=== PATIENT | female | born 1955 | race Caucasian/White ===

== ENCOUNTER 2016-10-12 11:49 | Observation (INO) | payer BC ==
[~2016-10-12] VITALS: Ht 160 cm; Wt 70.8 kg
[~2016-10-12 11:49] MED LIST: ASPIRIN81 MG PO; AVELOX400 MG OR; BAYER ASPIRIN E81 MG PO; BAYER LOW81 MG PO; BUPROPION HCL300 MG PO; CARAFATE1 GM PO; CHERATUSSIN OR; FLEXERIL OR; FLEXERIL10 MG PO; LEXAPRO10 MG PO; LEXAPRO20 MG PO; MEDDOSEPAK OR; NORCO1 TA1 PO; OMEPRAZOLE20 MG PO; PERCOCET 5/321 COMBO PO; PLAVIX75 MG OR; PREMARIN0.625 MG OR; PREVPAC PO; PROTONIX40 MG PO; TRAMADOL HCL50 MG PO; TRICOR145 MG OR; WELLBUTRIN150 MG PO; XANAX0.25 MG PO; ZOCOR20 M1 PO; ZOCOR20 MG PO
[2016-10-12 12:18] LABS: HEMATOCRIT 37.3 % (37.0-47.0); HEMOGLOBIN 12.9 g/dl (12.0-16.0); IMMATURE GRANULOCYTES 0.3 % (0.0-1.0); MEAN CELL VOLUME 88.4 fL CALC (80.0-100.0); MEAN CORPUSCULAR HGB 30.6 pG CALC (26.0-32.0); MEAN CORPUSCULAR HGB CONC 34.6 g/L CALC (32.0-36.0); NEUT# 6.9 thou/uL (2.00-7.15); RED BLOOD COUNT 4.22 mill/uL (4.20-5.60); RED CELL DISTRI WIDTH 12.3 % (11.5-15.5)
[2016-10-12 12:19] LABS: ALBUMIN 4.3 g/dL (3.2-5.0); ALKALINE PHOSPHATASE 107 u/l (38-126); ANION GAP 16 (6-22 (CALC)); BILIRUBIN, TOTAL 0.6 mg/dL (0.0-1.4); BUN 13 mg/dL (8-23); BUN/CREATININE RATIO 10 (12-20 (CALC)); CALCIUM 9.3 mg/dL (8.4-10.2); CARBON DIOXIDE 25 mmol/l (22-30); CHLORIDE 105 mmol/l (95-108); CREATININE 1.4 mg/dL (0.5-1.0); GFR 38 ML/MIN (>=60 (CALC)); GFR FOR AFR.AMER. 46 ML/MIN (>=60 (CALC)); GLUCOSE 107 mg/dL (82-115); POTASSIUM 4.5 mmol/l (3.5-5.1); SGOT/AST 32 u/l (9-36); SGPT/ALT 33 u/l (11-66); SODIUM 141 mmol/l (137-146); TOTAL PROTEIN 7.8 g/dL (6.3-8.2)
[2016-10-12 12:30] LABS: MYOGLOBIN 62 ng/mL (0 - 62)
[2016-10-12 14:15] VITALS: BP 129/75
[2016-10-12 18:52] VITALS: BP 125/75
[2016-10-13 00:32] VITALS: BP 106/66
[2016-10-13 05:14] VITALS: BP 98/61
[2016-10-13 05:35] LABS: HEMATOCRIT 33.7 % (37.0-47.0); HEMOGLOBIN 11.4 g/dl (12.0-16.0); IMMATURE GRANULOCYTES 0.2 % (0.0-1.0); MEAN CELL VOLUME 90.1 fL CALC (80.0-100.0); MEAN CORPUSCULAR HGB 30.5 pG CALC (26.0-32.0); MEAN CORPUSCULAR HGB CONC 33.8 g/L CALC (32.0-36.0); NEUT# 2.5 thou/uL (2.00-7.15); RED BLOOD COUNT 3.74 mill/uL (4.20-5.60); RED CELL DISTRI WIDTH 12.3 % (11.5-15.5)
[2016-10-13 06:05] LABS: CREATININE 1.3 mg/dL (0.5-1.0)
[2016-10-13 07:41] VITALS: BP 100/50
[2016-10-13] MEDS ORDERED: IBUPROFEN600 MG PO (08:46)
== END 2016-10-13 10:14 | disposition home or self-care (01) | DRG 313 ==
LOC: ENPENDDIS → ED 11:49 → ED-I 12:56 → ED 13:23 → MS2 13:24
PROVIDERS: Emergency Medicine; ADMIT Internal Medicine; ATTEND Internal Medicine
DX: R07.89 Other chest pain (principal); F32.9 Major depressive disorder, single episode, unspecified; J44.9 Chronic obstructive pulmonary disease, unspecified; F17.210 Nicotine dependence, cigarettes, uncomplicated
CPT/HCPCS: G0378

== ENCOUNTER 2017-10-28 10:00 | Emergency (ER) | payer BC ==
[~2017-10-28] VITALS: Ht 160 cm; Wt 84.0 kg
[~2017-10-28 10:00] MED LIST changes: +IBUPROFEN600 MG PO
[2017-10-28] MEDS ORDERED: MOTRIN400 MG PO (10:36)
[2017-10-28 10:57] VITALS: BP 140/80
== END 2017-10-28 10:40 | disposition home or self-care (01) | DRG 563 ==
LOC: ED 10:00
DX: S93.401A Sprain of unspecified ligament of right ankle, initial encounter (principal); F17.210 Nicotine dependence, cigarettes, uncomplicated; W17.89XA Other fall from one level to another, initial encounter; Y92.009 Unspecified place in unspecified non-institutional (private) residence as the place of occurrence of the external cause

== ENCOUNTER → 2018-09-30 | Outpatient (REF) | payer BC ==
[~2018-09-30] MED LIST changes: +MOTRIN400 MG PO
== END | disposition home or self-care (01) | DRG 951 ==
LOC: MAMMO 09:32
PROVIDERS: ATTEND Nurse Practitioner
DX: Z12.31 Encounter for screening mammogram for malignant neoplasm of breast (principal)